=== PATIENT | male | born 1970 | race Caucasian/White ===

== ENCOUNTER 2019-08-12 06:22 | Emergency (ER) | payer OTHER ==
[~2019-08-12] VITALS: Ht 177.8 cm; Wt 152.0 kg
[2019-08-12 06:38] VITALS: Ht 177.8 cm; Wt 152.0 kg
[2019-08-12 08:49] VITALS: BP 122/81
== END 2019-08-12 08:30 | disposition home or self-care (01) ==
LOC: ED 06:22
DX: J10.1 Influenza due to other identified influenza virus with other respiratory manifestations (principal); E66.01 Morbid (severe) obesity due to excess calories; Z68.42 Body mass index [BMI] 45.0-49.9, adult; Z87.39 Personal history of other diseases of the musculoskeletal system and connective tissue
CPT/HCPCS: 87804